=== PATIENT | female | born 1955 | race Caucasian/White ===

== ENCOUNTER → 2023-01-26 | Outpatient (CLI) | payer MEDICARE ==
[2023-01-26 13:21] LABS: BLOOD UREA NITROGEN 18 MG/DL (9-23); CALCIUM LEVEL 9.2 MG/DL (8.3-10.6); CARBON DIOXIDE LEVEL 30 MMOL/L (20-31); CHLORIDE LEVEL 106 MMOL/L (98-107); CREATININE FOR GFR 0.73 MG/DL (0.55-1.30); GLOMERULAR FILTRATION RATE > 60.0 (>45); GLUCOSE, FASTING 90 MG/DL (74-106); POTASSIUM SERUM 5.1 MMOL/L (3.5-5.1); SODIUM LEVEL 140 MMOL/L (136-145)
== END ==
LOC: M LAB 11:48
PROVIDERS: ATTEND Family Medicine
DX: I34.0 Nonrheumatic mitral (valve) insufficiency (principal); I10 Essential (primary) hypertension

== ENCOUNTER 2025-03-12 10:07 | Day surgery (SDC) | payer MEDICARE ==
[~2025-03-12] VITALS: Ht 154.9 cm; Wt 64.0 kg
[~2025-03-12 10:07] MED LIST: CALC1TAB42 PO; ECOT81TA5 PO; FIBECHW4 PO; METO1TAB87 PO; MULTTAB61 PO; OFLOXACIN 0.3 % (OCUFLOX) OPTH SOL 5ML OD ONE; OMEP-173 PO; PHENYLEPHRINE 10% OPHTH SOL 5ML OD PRN; PRAV40TA85 PO; VITA100093 PO
[2025-03-12] MEDS ORDERED: MIDAZOLAM INJ 2 MG/2 ML VIAL As Ordered ONE (10:55)
[2025-03-12] MEDS: TROPICAMIDE 1% OPHTH SOLN 15ML OD SCH (11:15)
[2025-03-12] MEDS: PHENYLEPHRINE 2.5% OPHTH SOL 2ML OD SCH (11:15)
[2025-03-12] MEDS: CYCLOPENTOLATE 1% OPHTH SOLN 2 ML BTL OD SCH (11:15)
[2025-03-12] MEDS: LIDOCAINE 3.5% 1 ML OPHTH TOPICAL GEL OU ONE (11:15)
[2025-03-12] MEDS: BSS IRRIG/VANCO(10MG)/TOBRA(5MG)/EPINEPH(1:1000-0.5CC)500ML BAG-ORONLY As Ordered ONE (12:25)
[2025-03-12] MEDS: LIDOCAINE 1% SDV 5 ML VIAL As Ordered ONE (12:25)
[2025-03-12] MEDS: CEFUROXIME 1 MG/0.1 ML INTRACAMERAL INJ As Ordered ONE (12:25)
[2025-03-12 12:35] VITALS: BP 119/67; TEMP 97.6; O2SAT 98
== END 2025-03-12 12:50 | disposition home or self-care (01) ==
LOC: M SDC 10:07
PROVIDERS: ATTEND Ophthalmology
DX: H25.11 Age-related nuclear cataract, right eye (principal); I10 Essential (primary) hypertension; E78.00 Pure hypercholesterolemia, unspecified; K21.9 Gastro-esophageal reflux disease without esophagitis; Z79.899 Other long term (current) drug therapy; Z79.82 Long term (current) use of aspirin; Z90.710 Acquired absence of both cervix and uterus; Z88.5 Allergy status to narcotic agent
CPT/HCPCS: 66984; J0697; J2250; J3010; V2632

== ENCOUNTER → 2025-03-19 | Day surgery (SDC) | payer MEDICARE ==
[~2025-03-19] VITALS: Ht 154.9 cm; Wt 64.9 kg
[~2025-03-19] MED LIST changes: +BSS IRRIG/VANCO(10MG)/TOBRA(5MG)/EPINEPH(1:1000-0.5CC)500ML BAG-ORONLY As Ordered ONE; +CEFUROXIME 1 MG/0.1 ML INTRACAMERAL INJ As Ordered ONE; +CYCLOPENTOLATE 1% OPHTH SOLN 2 ML BTL OS SCH; +LIDOCAINE 1% SDV 5 ML VIAL As Ordered ONE; +LIDOCAINE 3.5% 1 ML OPHTH TOPICAL GEL OU ONE; +MIDAZOLAM INJ 2 MG/2 ML VIAL As Ordered ONE; -OFLOXACIN 0.3 % (OCUFLOX) OPTH SOL 5ML OD ONE; +OFLOXACIN 0.3 % (OCUFLOX) OPTH SOL 5ML OS ONE; -PHENYLEPHRINE 10% OPHTH SOL 5ML OD PRN; +PHENYLEPHRINE 10% OPHTH SOL 5ML OS PRN; +PHENYLEPHRINE 2.5% OPHTH SOL 2ML OS SCH; +TROPICAMIDE 1% OPHTH SOLN 15ML OS SCH
== END | disposition home or self-care (01) ==
LOC: M SDC 09:14
PROVIDERS: ATTEND Ophthalmology
DX: H25.9 Unspecified age-related cataract (principal); Z53.09 Procedure and treatment not carried out because of other contraindication
CPT/HCPCS: J2250; J3010